=== PATIENT | male | born 1975 | race Caucasian/White ===

== ENCOUNTER 2016-11-20 12:17 | Emergency (ER) | payer BC ==
[2016-11-20 12:25] VITALS: RESP 16
[2016-11-20] MEDS ORDERED: IBUPROFEN SUSP 100 MG/5 ML UDCUP PO ONE (12:32)
[2016-11-20] MEDS ORDERED: IBUPROFEN 600 MG TAB PO ONE ×2 (12:38→12:47)
--- NOTE | 2016-11-20 13:08 | EDPHY ---
H & P Time Seen by Provider: 11/20/16 12:25 HPI/ROS: CHIEF COMPLAINT: Left ankle pain HISTORY OF PRESENT ILLNESS: The patient is a 41-year-old male who presents emergency department with left lateral ankle and lateral foot pain. Patient was playing basketball when he twisted his ankle. Pain is moderate. It is worse with ambulation. He denies any numbness or tingling. No previous injury to that ankle. REVIEW OF SYSTEMS: Negative Past Medical/Surgical History: Previous right ankle injury Smoking Status: Never smoked Physical Exam: Vitals noted General Appearance: Alert and no distress. Head: Pupils equal. Normal. Respiratory: No respiratory distress. Cardiac: regular rate and rhythm. Extremities: patient has mild swelling and tenderness palpation over his left lateral malleolus. He also has tenderness palpation mild swelling over the base of his 5th metatarsal. No other foot tenderness. No proximal tib-fib tenderness. Skin: No rashes or lesions. Neuro: Alert. Normal mood and affect. Constitutional: Initial Vital Signs Temperature (C) 36.9 C 11/20/16 12:24 Heart Rate 67 11/20/16 12:24 Respiratory Rate 16 11/20/16 12:24 Blood Pressure 124/88 H 11/20/16 12:24 O2 Sat (%) 96 11/20/16 12:24 O2 Delivery Mode Room Air Allergies/Adverse Reactions: No Known Allergies Allergy (Unverified 11/20/16 12:23) Home Medications: Medication Instructions Recorded Hydrocodone/APAP 5/325 [Casey 1 - 2 tab PO Q4 #9 tab 11/20/16 5/325 (RX)] Medical Decision Making - Diagnostics Imaging Results: Imaging Impressions Ankle X-Ray 11/20/16 12:25 Impression: 1. Tiny chip or avulsion fracture adjacent to the distal tip of the fibula. 2. Nondisplaced transverse fracture base of the fifth metatarsal. Findings discussed with Lala Mcelroy M.D. at 12:59 hour, 11/20/2016. ED Course/Re-evaluation: In the emergency department I discussed possible etiologies with the patient. An x-ray of his left ankle. This was ordered in triage. Left ankle x-ray: Please refer the dictated report by Dr. Woody. I discussed the case with Dr. Woody. Patient has notable lateral swelling. Patient will also has a small avulsion fracture at the base of the left fibula. There is also a fracture of the base of his 5th metatarsal. I discussed the result with the patient. I answered all his questions. Patient was placed in a Yobani boot. He is neurovascularly intact distally post placement. He was given crutches. He will follow up with Orthopedics. He is given warnings prior to leaving. Differential Diagnosis: My differential includes but is not limited to fibular fracture, foot fracture, dislocation, sprain, strain - Data Points Medications Given: Discontinued Medications Ibuprofen (Motrin Oral Solution) 600 mg PO EDNOW ONE Stop: 11/20/16 12:33 Last Admin: 11/20/16 12:46 Dose: Not Given Ibuprofen (Motrin) 600 mg PO EDNOW ONE Stop: 11/20/16 12:48 Last Admin: 11/20/16 12:47 Dose: 600 mg Departure - Departure Disposition: Home, Routine, Self-Care Clinical Impression: Fracture of distal end of fibula Qualifiers: Encounter type: initial encounter Fracture type: closed Fracture morphology: other fracture Laterality: left Qualified Code(s): S82.832A - Other fracture of upper and lower end of left fibula, initial encounter for closed fracture Fracture of 5th metatarsal Qualifiers: Encounter type: initial encounter Fracture type: closed Fracture alignment: nondisplaced Laterality: left Qualified Code(s): S92.355A - Nondisplaced fracture of fifth metatarsal bone, left foot, initial encounter for closed fracture Condition: Good Instructions: Foot Fracture in Adults (ED), Ankle Fracture (ED) Additional Instructions: You have a small avulsion fracture at the tip of your left fibula. He also have a fracture of the base of your left 5th metatarsal. Keep your boot in place. Use crutches until you follow up with Orthopedic surgery. You been given the contact information. Call them Monday morning. Referrals: Israel Denton MD [Medical Doctor] - As per Instructions Prescriptions: Hydrocodone/APAP 5/325 [Casey 5/325 (RX)] 1 - 2 tab PO Q4 #9 tab
[2016-11-20 13:22] VITALS: BP 122/76; PULSE 81; TEMP 97.7; O2SAT 98
== END 2016-11-20 13:22 | disposition home or self-care (01) ==
DX: S82.832A Other fracture of upper and lower end of left fibula, initial encounter for closed fracture (principal); S92.355A Nondisplaced fracture of fifth metatarsal bone, left foot, initial encounter for closed fracture; X58.XXXA Exposure to other specified factors, initial encounter; Y93.67 Activity, basketball

== ENCOUNTER → 2016-11-22 | Outpatient (CLI) | payer BC | LOC: BMCIMAGING 15:55 | PROVIDERS: ATTEND Podiatrist Foot & Ankle Surgery | DX: S92.355D Nondisplaced fracture of fifth metatarsal bone, left foot, subsequent encounter for fracture with routine healing (principal) ==

== ENCOUNTER → 2016-12-29 | Outpatient (CLI) | payer BC | LOC: BMCIMAGING 08:38 | PROVIDERS: ATTEND Podiatrist Foot & Ankle Surgery | DX: S92.355D Nondisplaced fracture of fifth metatarsal bone, left foot, subsequent encounter for fracture with routine healing (principal) ==

== ENCOUNTER → 2017-01-18 | Outpatient (CLI) | payer BC | LOC: BMCIMAGING 08:59 | PROVIDERS: ATTEND Podiatrist Foot & Ankle Surgery | DX: S92.355D Nondisplaced fracture of fifth metatarsal bone, left foot, subsequent encounter for fracture with routine healing (principal) ==